=== PATIENT | male | born 1950 | race Hispanic/Latino ===

== ENCOUNTER 2017-12-01 06:25 | Day surgery (SDC) | payer OTHER ==
[2017-11-25 11:25] VITALS: BP 129/72
[2017-12-01] VITALS (13 sets, daily range): BP systolic 100–143; BP diastolic 61–82
[~2017-12-01] VITALS: Ht 170.2 cm; Wt 85.4 kg
[~2017-12-01 06:25] MED LIST: AZIT250T9 PO; BENZ200C53 PO; DOXA8TAB81 PO; FINA5TAB41 PO; SOLI5 PO
[2017-12-01] MEDS ORDERED: BUPIVACAINE/EPI/PF 0.25% 30ML VIAL IJ ONE (06:51)
[2017-12-01] MEDS ORDERED: LACTATED RINGERS 1000ML 1,000 ML IV ONE (06:57)
[2017-12-01] MEDS ORDERED: CLINDAMYCIN 900 MG/D5% WATER 50 ML IV ONE (06:57)
[2017-12-01] MEDS ORDERED: PROPOFOL 10 MG/ML 20ML VIAL IV ONE (07:16)
[2017-12-01] MEDS ORDERED: MIDAZOLAM HCL 1 MG/ML 2ML VIAL ONE ×2 (07:16→07:39)
[2017-12-01] MEDS ORDERED: LIDOCAINE PF 2% 5ML ABBOJECT ONE (07:16)
[2017-12-01] MEDS ORDERED: ROCURONIUM 10MG/1ML SYR 10 MG/ML ML ONE (07:17)
[2017-12-01] MEDS ORDERED: FENTANYL CITRATE PF 50 MCG/1 ML 2ML VIAL ONE (07:17)
[2017-12-01] MEDS ORDERED: ROPIVACAINE 0.5% 5MG/ML 30ML IJ ONE (07:30)
[2017-12-01] MEDS ORDERED: DEXAMETHASONE SOD PHOSPHATE 10MG/ML 1ML VIAL ONE (08:18)
[2017-12-01] MEDS ORDERED: ONDANSETRON HCL 4 MG/2 ML VIAL ONE (08:18)
== END 2017-12-01 10:12 | disposition home or self-care (01) ==
LOC: DAH 06:25
PROVIDERS: ATTEND Orthopaedic Surgery
DX: M23.222 Derangement of posterior horn of medial meniscus due to old tear or injury, left knee (principal); M22.42 Chondromalacia patellae, left knee; Z79.899 Other long term (current) drug therapy; Z88.0 Allergy status to penicillin; Z98.890 Other specified postprocedural states; Z68.32 Body mass index [BMI] 32.0-32.9, adult
CPT/HCPCS: 29881; A4248; A4606; A4649 ×3; A4930; A6223; J1100; J2001; J2250 ×2; J2405; J2704; J2795; J3010; J3490 ×2; J7120

== ENCOUNTER → 2020-12-15 | Outpatient (CLI) | payer OTHER ==
[~2020-12-15] VITALS: Ht 162.6 cm; Wt 92.1 kg
[~2020-12-15] MED LIST changes: +REGADENOSON 0.4 MG/5 ML PF SYG IVP SCH
== END | disposition home or self-care (01) ==
LOC: SHCH 08:11
PROVIDERS: ATTEND Internal Medicine Cardiovascular Disease
DX: R07.9 Chest pain, unspecified (principal)
CPT/HCPCS: 78452; 93017; 96374; A9500 ×2; J2785

== ENCOUNTER → 2021-05-14 | Outpatient (CLI) | payer OTHER ==
[~2021-05-14] MED LIST changes: -REGADENOSON 0.4 MG/5 ML PF SYG IVP SCH
== END | disposition home or self-care (01) ==
LOC: RAH 13:10
PROVIDERS: ATTEND Otolaryngology Plastic Surgery within the Head & Neck
DX: R22.1 Localized swelling, mass and lump, neck (principal)
CPT/HCPCS: 76536

== ENCOUNTER → 2022-06-22 | Outpatient (CLI) | payer OTHER | END | disposition home or self-care (01) | LOC: SHCH 13:48 | PROVIDERS: ATTEND Internal Medicine Cardiovascular Disease | DX: I87.2 Venous insufficiency (chronic) (peripheral) (principal) | CPT/HCPCS: 93970 ==

== ENCOUNTER → 2024-01-02 | Outpatient (CLI) | payer OTHER | END | disposition home or self-care (01) | LOC: RAH 13:00 | PROVIDERS: ATTEND Internal Medicine Cardiovascular Disease | DX: J47.9 Bronchiectasis, uncomplicated (principal); J98.4 Other disorders of lung; J84.10 Pulmonary fibrosis, unspecified | CPT/HCPCS: 71250 ==